=== PATIENT | female | born 1995 | race Two or more races ===

== ENCOUNTER 2024-02-07 05:51 | Emergency (ER) | payer OTHER ==
[2024-02-07 06:03] VITALS: O2SAT 100
--- NOTE | 2024-02-07 06:13 | ED Physician Documentation ---
PD HPI CHEST PAIN - Stated complaint Stated Complaint: CHEST PX - Chief complaint Chief Complaint: Ext Problem - History obtained from History obtained from: Patient - Additional information Additional information: HPI from patient. Patient complains of chest pain radiating to her right shoulder, onset yesterday morning when she woke up with this pain. The chest pain is anterior and midline. She has not had the symptoms before. The pain is worse with movement and there is a pleuritic component, as well. Pain is also partially exacerbated when lying supine. Denies nausea vomiting. Denies chance of . Denies abdominal pain, fever. Denies dyspnea. Denies leg swelling. PD PAST MEDICAL HISTORY - Past Medical History Past Medical History: No - Past Surgical History Past Surgical History: No - Present Medications Home Medications: Ambulatory Orders Medication Instructions Recorded Confirmed No Known Home Medications 02/07/24 02/07/24 - Allergies Allergies/Adverse Reactions: Allergies Allergy/AdvReac Type Severity Reaction Status Date / Time No Known Drug Allergies Allergy Verified 02/07/24 05:59 - Social History Does the pt smoke?: No Smoking Status: Never smoker PD ED PE NORMAL - Vitals Vital signs reviewed: Yes - General General: Alert and oriented X 3, No acute distress, Well developed/nourished - Cardiac Cardiac: RRR, No murmur, No gallop, No rub - Respiratory Respiratory: No respiratory distress, Clear bilaterally - Abdomen Abdomen: Soft, Non tender, Non distended - Back Back: No CVA TTP - Extremities Extremities: No edema Results - Vitals Vitals: Vital Signs - 24 hr 02/07/24 02/07/24 05:56 05:59 Temperature 36.3 C L Heart Rate 84 84 Respiratory 16 Rate Blood Pressure 131/76 H O2 Saturation 100 Oxygen O2 Source Room air - Labs Labs: Laboratory Tests 02/07/24 02/07/24 02/07/24 06:31 06:31 06:31 WBC 6.6 RBC 4.37 Hgb 12.9 Hct 40.2 MCV 92.0 MCH 29.5 MCHC 32.1 RDW 12.8 Plt Count 355 MPV 9.6 Neut # (Auto) 3.4 Lymph # (Auto) 2.4 Elk # (Auto) 0.7 Eos # (Auto) 0.1 Baso # (Auto) 0.0 Absolute Nucleated RBC 0.00 Nucleated RBC % 0.0 ESR 9 D-Dimer < 200.0 L Sodium Potassium Chloride Carbon Dioxide Anion Gap BUN Creatinine Estimated GFR (MDRD) Glucose Calcium Total Bilirubin AST ALT Alkaline Phosphatase Total Protein Albumin Globulin Albumin/Globulin Ratio Lipase 02/07/24 06:31 WBC RBC Hgb Hct MCV MCH MCHC RDW Plt Count MPV Neut # (Auto) Lymph # (Auto) Elk # (Auto) Eos # (Auto) Baso # (Auto) Absolute Nucleated RBC Nucleated RBC % ESR D-Dimer Sodium 140 Potassium 4.1 Chloride 107 Carbon Dioxide 26 Anion Gap 7.0 BUN 9 Creatinine 0.9 Estimated GFR (MDRD) 75 L Glucose 108 H Calcium 9.5 Total Bilirubin 0.3 AST 14 ALT 20 Alkaline Phosphatase 55 Total Protein 7.4 Albumin 4.2 Globulin 3.2 Albumin/Globulin Ratio 1.3 Lipase 19 - Rads (name of study) chest xray Relevant Findings:: Prelim report reviewed, See rad report PD Medical Decision Making - ED course Complexity details: reviewed results, re-evaluated patient, considered differential, d/w patient ED course: Normal CBC, ER abdominal panel. Negative D-dimer (<200) and normal ESR. Normal CXR. Results discussed with patient, return precautions reviewed. The cause of her symptoms is not apparent at this time. Advised to follow-up with PCP within 3-5 days if symptoms have not resolved Departure - Departure Disposition: 01 Home, Self Care Clinical Impression: Chest pain Qualifiers: Chest pain type: unspecified Qualified Code(s): R07.9 - Chest pain, unspecified Condition: Good Instructions: ED Chest Pain Atypical Unkn Cause Comments: There were no concerning nor diagnostic findings on tonight's blood tests and your chest xray was normal. The cause of your chest pain is not apparent at this time. Follow up with your primary care provider in 3-5 days for reevaluation. You can take ibuprofen ([id number], follow label instructions) as needed for pain. Forms: PCP List
[2024-02-07 06:36] LABS: BASOPHILS % (AUTO) 0.5 %; EOSINOPHILS # (AUTO) 0.1 10^3/uL (0.0-0.7); EOSINOPHILS % (AUTO) 0.9 %; HCT - HEMATOCRIT 40.2 % (37.0-47.0); HGB - HEMOGLOBIN 12.9 g/dL (12.0-16.0); LYMPHOCYTES # (AUTO) 2.4 10^3/uL (1.5-3.5); LYMPHOCYTES % (AUTO) 36.8 %; MEAN CORPUSCULAR HEMOGLOBIN 29.5 pg (27.0-31.0); MEAN CORPUSCULAR HGB CONC 32.1 g/dL (32.0-36.0); MEAN PLATELET VOLUME 9.6 fL (7.9-10.8); MONOCYTES # (AUTO) 0.7 10^3/uL (0.0-1.0); MONOCYTES % (AUTO) 10.9 %; NEUTROPHILS # (AUTO) 3.4 10^3/uL (1.5-6.6); NEUTROPHILS % (AUTO) 50.7 %; PLT - PLATELET COUNT 355 10^3/uL (130-450); RED BLOOD COUNT 4.37 10^6/uL (4.20-5.40); RED CELL DISTRIBUTION WIDTH 12.8 % (12.0-15.0); WHITE BLOOD COUNT 6.6 x10^3/uL (4.8-10.8)
[2024-02-07 06:52] LABS: ALBUMIN 4.2 g/dL (3.2-5.5); ALBUMIN/GLOBULIN RATIO 1.3 (1.0-2.2); BILIRUBIN,TOTAL 0.3 mg/dL (0.2-1.0); CALCIUM 9.5 mg/dL (8.5-10.3); CREATININE 0.9 mg/dL (0.6-1.3); POTASSIUM 4.1 mmol/L (3.5-4.5); TOTAL PROTEIN 7.4 g/dL (6.4-8.9)
[2024-02-07] MEDS: IBUPROFEN 600 MG TABLET PO STA (07:33)
--- NOTE | 2024-02-07 07:43 | XRAY Report ---
PROCEDURE: Chest 2V INDICATIONS: chest pain TECHNIQUE: 2 views of the chest were acquired. COMPARISON: None. FINDINGS: Surgical changes and devices: None. Lungs and pleura: No pleural effusions or pneumothorax. Lungs are clear. Mediastinum: Mediastinal contours appear normal. Heart size is normal. Bones and chest wall: No suspicious bony lesions. Overlying soft tissues appear unremarkable. IMPRESSION: No acute cardiopulmonary process. Findings are concordant with preliminary interpretation provided by [facility]. Reviewed by: Misha Gregorio MD on 02/07/2024 7:41 AM PDT Approved by: Misha Gregorio MD on 02/07/2024 7:41 AM PDT Station ID: [id number]
[2024-02-07 07:46] VITALS: BP 122/78
== END 2024-02-07 07:37 | disposition home or self-care (01) ==
LOC: ED 05:51
DX: R07.9 Chest pain, unspecified (principal)
CPT/HCPCS: 36415; 71046; 80053; 83690; 85025; 85379; 85651; 99283; 99284; A9270